=== PATIENT | male | born 1970 | race Caucasian/White ===

== ENCOUNTER 2020-06-02 09:39 | Emergency (ER) | payer BC, OTHER ==
[2020-06-02 09:57] VITALS: BMI 38.0
[2020-06-02] MEDS ORDERED: morphine CARPU-JECT 4 MG/1 ML DISP.SYRIN IVPUSH ONE (10:09)
[2020-06-02] MEDS ORDERED: LACTATED RINGERS SOLUTION 1000 ML INFUS.BAG IV ONE ×2 (10:11→11:44)
[2020-06-02] MEDS ORDERED: morphine SULFATE 4 MG/ML VIAL ONE (10:18)
[2020-06-02 10:32] LABS: EPI CELLS 2 /uL (0-25.1); HYALINE CASTS 2 /uL (0-3.1); PH,URINE 5.5 (5.0-8.0); URINE APPEARANCE CLEAR; URINE BACTERIA 8 /uL (0-1359); URINE BILIRUBIN NEGATIVE (NEGATIVE); URINE COLOR YELLOW; URINE GLUCOSE (UA) NEGATIVE (NEGATIVE); URINE KETONE NEGATIVE (NEGATIVE); URINE LEUK ESTERASE NEGATIVE (NEGATIVE); URINE NITRITE NEGATIVE (NEGATIVE); URINE PROTEIN NEGATIVE (NEGATIVE); URINE RBC 11 /uL (0-23.9); URINE UROBILINOGEN 0.2 mg/dL (0.2-1.0); URINE WBC 4 /uL (0-25.8)
[2020-06-02 10:54] LABS: BASO % 0.3 % (0-2.0); EOS % 0.3 % (0-4.5); HEMATOCRIT 46.2 % (35.4-49); HEMOGLOBIN 15.8 GM/dL (11.7-16.9); LYMPH % 17.8 % (8-40); MCH 30.9 pg (25.7-33.7); MCHC 34.2 g/dl (32.0-35.9); MEAN CELL VOLUME 90.3 fl (80-96); MEAN PLT VOLUME 11.1 fl (7.5-11.1); MONO % 5.8 % (3.8-10.2); NEUT % 75.8 % (42.8-82.8); PLATELET COUNT 187 K/MM3 (134-434); RBC 5.12 M/mm3 (4.00-5.60); RDW 13.5 % (11.9-15.9)
[2020-06-02 11:24] LABS: ALBUMIN 3.7 g/dl (3.4-5.0); BILIRUBIN,TOTAL 0.4 mg/dL (0.2-1); BLOOD UREA NITROGEN 12.4 mg/dL (7-18); CREATININE 1.2 mg/dL (0.55-1.3); POTASSIUM 3.8 mmol/L (3.5-5.1); TOT PROT 7.3 g/dl (6.4-8.2)
--- NOTE | 2020-06-02 11:25 | PDOC ---
History of Present Illness - General Chief Complaint: Urinary Problem Stated Complaint: URINARY RETENTION Time Seen by Provider: 06/02/20 10:02 - History of Present Illness Initial Comments: 06/02/20 11:54 49 yo male with pmh of hernia presents to ED for left testicular pain radiation up the left flank that started this AM. Pt explains he was lying down and started having left testicular pain radiating up his groin to his left back. Pt denies ever having pain before. Pt explains it is 10/10 sharp pain. PT denies anything make it better or worse. Pt denies fevers, chills, dysuria, urinary frequency, erythema or swelling of testicle, nausea, or emesis. PMH: denies Meds: denies PSH: right hernia repair Allergy: denies Social: denies smoking drugs or alcohol PCP: Dr. Trveiño Past History - Medical History Allergies/Adverse Reactions: Allergies Allergy/AdvReac Type Severity Reaction Status Date / Time No Known Allergies Allergy Verified 06/02/20 09:47 Home Medications: Ambulatory Orders Oxycodone HCl 5 mg PO BID PRN #6 capsule MDD 2 tabs 06/02/20 COPD: No - Immunization History Immunization Up to Date: Yes - Psycho-Social/Smoking History Smoking History: Never smoked Have you smoked in the past 12 months: No Information on smoking cessation initiated: No - Substance Abuse Hx (Audit-C & DAST Scrn) How often the patient has a drink containing alcohol: Never Score: In Men: 4 or > Positive; In Women: 3 or > Positive: 0 Screen Result (Pos requires Nsg. Audit-10AR): Negative In the last yr the pt used illegal drug/Rx for NonMed reason: No Score: Yes response is considered Positive: 0 Screen Result (Positive result requires Nsg. DAST-10): Negative Review of Systems - Review of Systems Comments:: 06/02/20 13:58 GENERAL/CONSTITUTIONAL: No fever or chills. No weakness. HEAD, EYES, EARS, NOSE AND THROAT: No change in vision. No ear pain or discharge. No sore throat. CARDIOVASCULAR: No chest pain or shortness of breath RESPIRATORY: No cough, wheezing, or hemoptysis. GASTROINTESTINAL: No nausea, vomiting, diarrhea or constipation. GENITOURINARY: No dysuria, frequency, or change in urination. left flank pain MUSCULOSKELETAL: No joint or muscle swelling or pain. SKIN: No rash NEUROLOGIC: No headache, vertigo, loss of consciousness, or change in strength/sensation. ENDOCRINE: No increased thirst. No abnormal weight change ALLERGIC/IMMUNOLOGIC: No hives or skin allergy. *Physical Exam - Vital Signs Last Vital Signs Temp Pulse Resp BP Pulse Ox 97.7 F 59 L 16 141/49 L 97 06/02/20 09:49 06/02/20 09:49 06/02/20 09:49 06/02/20 09:49 06/02/20 09:49 - Physical Exam 06/02/20 13:59 GENERAL: Awake, alert, and fully oriented, in severe distress HEAD: No signs of trauma, normocephalic, atraumatic EYES: PERRLA, EOMI, sclera anicteric, conjunctiva clear ENT: Auricles normal inspection, hearing grossly normal, nares patent, oropharynx clear without exudates. Moist mucosa NECK: Normal ROM, supple, no lymphadenopathy, JVD, or masses LUNGS: No distress, speaks full sentences, clear to auscultation bilaterally HEART: Regular rate and rhythm, normal S1 and S2, no murmurs, rubs or gallops, peripheral pulses normal and equal bilaterally. ABDOMEN: Left upper and lower quadrant tenderness. Normal bowel sounds in all four quadrants. Neg cva tenderness bilaterally EXTREMITIES : Normal inspection, Normal range of motion, no edema. No clubbing or cyanosis. NEUROLOGICAL: Cranial nerves II through XII grossly intact. Normal speech, normal gait, no focal sensorimotor deficits SKIN: Warm, Dry, normal turgor, no rashes or lesions noted : chaperoned by dionte Herrera. Testicular exam is nontender to palpation. ED Treatment Course - LABORATORY CBC & Chemistry Diagram: 06/02/20 10:35 06/02/20 10:35 - ADDITIONAL ORDERS Additional order review: Laboratory Results 06/02/20 06/02/20 10:35 10:21 Sodium 141 Potassium 3.8 Chloride 107 Carbon Dioxide 24 Anion Gap 9 BUN 12.4 Creatinine 1.2 Est GFR (CKD-EPI)AfAm 81.80 Est GFR (CKD-EPI)NonAf 70.58 Random Glucose 113 H Calcium 9.0 Total Bilirubin 0.4 AST 20 ALT 38 Alkaline Phosphatase 135 H Total Protein 7.3 Albumin 3.7 Urine Color Yellow Urine Appearance Clear Urine pH 5.5 Ur Specific Daphne 1.020 Urine Protein Negative Urine Glucose (UA) Negative Urine Ketones Negative Urine Blood Trace Urine Nitrite Negative Urine Bilirubin Negative Urine Urobilinogen 0.2 Ur Leukocyte Esterase Negative Urine WBC (Auto) 4 Urine RBC (Auto) 11 Urine Casts (Auto) 2 U Epithel Cells (Auto) 2 Urine Bacteria (Auto) 8 06/02/20 10:35 RBC 5.12 MCV 90.3 MCHC 34.2 RDW 13.5 MPV 11.1 Neutrophils % 75.8 Lymphocytes % 17.8 Monocytes % 5.8 Eosinophils % 0.3 Basophils % 0.3 - Medications Given in the ED: ED Medications Discontinued Medications Generic Name Dose Route Start Last Admin Trade Name Freq PRN Reason Stop Dose Admin Lactated Ringer's 1,000 ml 06/02/20 10:11 06/02/20 10:49 Lactated Ringers Solution IV 06/02/20 10:12 1,000 ml ONCE ONE Administration Morphine Sulfate 4 mg 06/02/20 10:09 06/02/20 10:25 Morphine Injection - IVPUSH 06/02/20 10:10 4 mg ONCE ONE Administration Medical Decision Making - Medical Decision Making 06/02/20 14:00 49 yo male presenting with severe left flank pain. Will get UA, cbc, cmp, testicular us and ct scan. Ddx is hernia vs torsion, vs diverticulitis, vs kidney stone vs pyelo vs UTI. 06/02/20 14:11 CT scan showed 4mm stone in left ureter causing mild hydro. There is no pyelonephritis, so will dc home with return precautions of fever chills, and susan n radiating up back. Will also repeat lactate. 06/02/20 14:26 Lactate was normal so DC home Discharge - Discharge Information Problems reviewed: Yes Clinical Impression/Diagnosis: Kidney stone on left side, Scrotal pain, Flank pain Condition: Improved Disposition: HOME - Additional Discharge Information Prescriptions: Oxycodone HCl 5 mg PO BID PRN #6 capsule MDD 2 tabs PRN Reason: Pain - Follow up/Referral Referrals: Jair Treviño MD [Primary Care Provider] - Parminder Small MD [Staff Physician] - - Patient Discharge Instructions Patient Printed Discharge Instructions: Kidney Stones -- Adult Additional Instructions: You were seen in the ED for left sided pain. This is most likely due to kidney stone. At the ED we did labs and imaging. The imaging was concerning for 4mm stone. The labs showed elevated lactate which we we gave fluids and repeated Please follow up with urology within 7 days. We gave you a referral. IF you have any of the following please return to the ED: - fevers or chills - back pain going up back - unable to eat or drink For any emergencies please call for medical help right away. - Post Discharge Activity
--- NOTE | 2020-06-02 12:38 | PDOC ---
Documentation entered by Sharon Walton SCRIBE, acting as scribe for Jeffrey Mead MD. Jeffrey Mead MD: This documentation has been prepared by the melissaibAnton benson Lincy, SCRIBE, under my direction and personally reviewed by me in its entirety. I confirm that the documentation accurately reflects all work, treatment, procedures, and medical decision making performed by me. Attending Attestation - Resident Resident Name: MegPercy - ED Attending Attestation I have performed the following: I have examined & evaluated the patient, The case was reviewed & discussed with the resident, I agree w/resident's findings & plan, Exceptions are as noted - HPI HPI: 06/02/20 10:44 The patient is a 49-year-old male with no reported past medical history who was sent to the emergency department from [facility] for left testicular pain radiating up to the left flank region since 8:00 am today. The patient reports he was laying down when he had an acute onset of the pain. The patient describes the pain as sharp and constant in quality with 10/10 severity. Denies prior similar pain. Denies fever, chills, nausea, vomiting, diarrhea, constipation, dysuria, hematuria, urinary frequency, black or tarry stool. Denies the history of STD or STIs. The patient reports he is monogamous with his and denies using protection. - Physicial Exam PE: 06/02/20 12:39 See resident exam - Medical Decision Making 06/02/20 12:43 49 M with testicular/flank pain. - Labs, UA - CT, US 06/02/20 14:15 CT shows L ureteral stone UA with trace blood, no infection Mild lactic acidosis, will repeat Labs otherwise wnl 06/02/20 15:59 Repeat lactate normal Pt is well appearing, with normal vitals. Clinically stable for DC at this time. I discussed the physical exam findings, ancillary test results and final diagnoses with the patient. I answered all of the patient's questions. The patient was satisfied with the care received and felt comfortable with the discharge plan and treatment plan. The patient agrees to follow up with the primary care physician within 24-72 hours. Discharge - Discharge Information Problems reviewed: Yes - Discharge Information Clinical Impression/Diagnosis: Kidney stone on left side, Scrotal pain, Flank pain Condition: Improved Disposition: HOME - Additional Discharge Information Prescriptions: Oxycodone HCl 5 mg PO BID PRN #6 capsule MDD 2 tabs PRN Reason: Pain - Follow up/Referral Referrals: Parminder Small MD [Staff Physician] - Jair Treviño MD [Primary Care Provider] - - Patient Discharge Instructions Patient Printed Discharge Instructions: Kidney Stones -- Adult Additional Instructions: You were seen in the ED for left sided pain. This is most likely due to kidney stone. At the ED we did labs and imaging. The imaging was concerning for 4mm stone. The labs showed elevated lactate which we we gave fluids and repeated Please follow up with urology within 7 days. We gave you a referral. IF you have any of the following please return to the ED: - fevers or chills - back pain going up back - unable to eat or drink For any emergencies please call for medical help right away. - Post Discharge Activity
[2020-06-02] MEDS ORDERED: KETOROLAC TROMETHAMINE 30 MG/1 ML VIAL IVPUSH ONE (13:06)
[2020-06-02] MEDS ORDERED: ACETAMINOPHEN 1000 MG/100 ML VIAL (NON FORMULARY) IVPB ONE (13:06)
[2020-06-02] MEDS ORDERED: KETOROLAC TROMETHAMINE 30 MG/1 ML VIAL ONE (13:07)
[2020-06-02] MEDS ORDERED: ACETAMINOPHEN INJECTION 100 ML IVPB ONE (13:07)
[2020-06-02 16:19] VITALS: BP 136/78; PULSE 82; TEMP 98.6
== END 2020-06-02 16:19 | disposition home or self-care (01) ==
LOC: JER 09:39
PROC: 3E033NZ Introduction of Analgesics, Hypnotics, Sedatives into Peripheral Vein, Percutaneous Approach (ICD-10-PCS; principal; 2020-06-02)
PROC: 3E033GC Introduction of Other Therapeutic Substance into Peripheral Vein, Percutaneous Approach (ICD-10-PCS; 2020-06-02)
DX: N20.0 Calculus of kidney (principal); N50.82 Scrotal pain
CPT/HCPCS: 36415; 74177-TC; 76870-TC; 80053; 81003; 83605; 85025; 87086; 99285-25; J0131; Q9967

== ENCOUNTER 2020-10-24 10:15 | Emergency (ER) | payer BC, OTHER ==
[2020-10-24 10:24] VITALS: BP 131/81; PULSE 100; TEMP 97.9; BMI 38.0
== END 2020-10-24 11:50 | disposition home or self-care (01) ==
LOC: JER 10:15
DX: U07.1 COVID-19 (principal); R05 Cough
CPT/HCPCS: 71046-TC-FY; 87426; 99284-25

== ENCOUNTER 2020-10-29 17:48 | Inpatient (IN) | payer BC, OTHER ==
[2020-10-29 19:47] LABS: BASO % 0.3 % (0-2.0); HEMATOCRIT 45.1 % (35.4-49); HEMOGLOBIN 15.4 GM/dL (11.7-16.9); LYMPH % 18.7 % (8-40); MCH 30.8 pg (25.7-33.7); MCHC 34.1 g/dl (32.0-35.9); MEAN CELL VOLUME 90.4 fl (80-96); MEAN PLT VOLUME 10.7 fl (7.5-11.1); MONO % 10.5 % (3.8-10.2); NEUT % 70.5 % (42.8-82.8); PLATELET COUNT 156 K/MM3 (134-434); RBC 4.99 M/mm3 (4.00-5.60); RDW 13.6 % (11.9-15.9); WHITE BLOOD COUNT 7.1 K/mm3 (4.0-10.0)
[2020-10-29 19:52] LABS: INR 1.11 (0.83-1.09); PROTHROMBIN TIME (PATIENT) 13.6 SEC (9.7-13.0)
[2020-10-29 20:03] LABS: CHLORIDE 102 mmol/L (98-107); POTASSIUM 4.1 mmol/L (3.5-5.1); SODIUM 136 mmol/L (136-145)
[2020-10-29 20:06] LABS: ALBUMIN 3.4 g/dl (3.4-5.0); ANION GAP 6 MMOL/L (8-16); BLOOD UREA NITROGEN 18.5 mg/dL (7-18); CALCIUM 8.7 mg/dL (8.5-10.1); CO2 29 mmol/L (21-32); GLUCOSE,RANDOM 87 mg/dL (74-106)
[2020-10-29 20:09] LABS: SGOT/AST 22 U/L (15-37); SGPT/ALT 38 U/L (13-61)
[2020-10-29 20:10] LABS: BILIRUBIN,TOTAL 0.4 mg/dL (0.2-1)
[2020-10-29 20:11] LABS: TOT PROT 7.3 g/dl (6.4-8.2)
[2020-10-29 20:12] LABS: ALK PHOS 89 U/L (45-117)
[2020-10-29 20:35] LABS: LDH 236 U/L (87-246)
[2020-10-29] MEDS ORDERED: DEXAMETHASONE SOD PHOSPHATE 4 MG/1 ML VIAL IVPUSH ONE (20:38)
[2020-10-29] MEDS ORDERED: DEXAMETHASONE SOD PHOSPHATE 10 MG/1 ML VIAL ONE (20:46)
[2020-10-29] MEDS ORDERED: ACETAMINOPHEN 325 MG TABLET (FP) PO PRN (21:17)
[2020-10-30] MEDS ORDERED: ACETAMINOPHEN 325 MG TABLET (FP) ONE (01:47)
[2020-10-30] MEDS ORDERED: CEFTRIAXONE 1 GM in DEXTROSE 5%-WATER - 50 ML IVPB ONE (06:06)
[2020-10-30] MEDS ORDERED: AZITHROMYCIN IVPB 500 MG/250 ML BAG IVPB ONE (06:07)
[2020-10-30] MEDS ORDERED: DEXTROSE 5%-WATER - 50 ML IVPB ONE (06:28)
[2020-10-30] MEDS ORDERED: cefTRIAXone SODIUM 1 GM VIAL ONE (06:28)
[2020-10-30] MEDS: guaiFENesin 200 MG/10 ML 10 ML UNIT-DOSE CUPS PO PRN (06:35)
[2020-10-30 10:13] LABS: BASO % 0.1 % (0-2.0); HEMATOCRIT 43.4 % (35.4-49); HEMOGLOBIN 14.9 GM/dL (11.7-16.9); LYMPH % 21.2 % (8-40); MCH 31.1 pg (25.7-33.7); MCHC 34.4 g/dl (32.0-35.9); MEAN CELL VOLUME 90.3 fl (80-96); MEAN PLT VOLUME 10.7 fl (7.5-11.1); MONO % 7.7 % (3.8-10.2); PLATELET COUNT 168 K/MM3 (134-434); RBC 4.81 M/mm3 (4.00-5.60); RDW 13.6 % (11.9-15.9); WHITE BLOOD COUNT 4.4 K/mm3 (4.0-10.0)
[2020-10-30 10:22] LABS: POTASSIUM 4.2 mmol/L (3.5-5.1)
[2020-10-30 10:24] LABS: ALBUMIN 3.1 g/dl (3.4-5.0); BLOOD UREA NITROGEN 19.2 mg/dL (7-18); CALCIUM 8.3 mg/dL (8.5-10.1)
[2020-10-30 10:27] LABS: CREATININE 0.9 mg/dL (0.55-1.3)
[2020-10-30 10:29] LABS: BILIRUBIN,TOTAL 0.4 mg/dL (0.2-1)
[2020-10-30] MEDS ORDERED: REMDESIVIR 200 MG in SODIUM CHLORIDE 210 ML IVPB ONE (12:00)
[2020-10-30] MEDS: ZINC SULFATE 220 MG CAPSULE (FP) PO SCH (12:15)
[2020-10-30] MEDS: DEXAMETHASONE 4 MG TABLET (FP) PO SCH (12:16)
[2020-10-30] MEDS: CHOLECALCIFEROL (VIT D3) 1,000 UNIT (25 MCG) TABLET PO SCH (12:16)
[2020-10-30] MEDS: ASCORBIC ACID 500 MG TABLET (FP) PO SCH ×2 (12:16→21:57)
[2020-10-31] MEDS ORDERED: DEXTROSE 5%-WATER - 50 ML IVPB ONE (10:25)
[2020-10-31] MEDS ORDERED: cefTRIAXone SODIUM 1 GM VIAL ONE (10:25)
[2020-10-31] MEDS: CEFTRIAXONE 1 GM in DEXTROSE 5%-WATER - 50 ML IVPB SCH (10:28)
[2020-10-31] MEDS: ZINC SULFATE 220 MG CAPSULE (FP) PO SCH (10:28)
[2020-10-31] MEDS: DEXAMETHASONE 4 MG TABLET (FP) PO SCH (10:28)
[2020-10-31] MEDS: CHOLECALCIFEROL (VIT D3) 1,000 UNIT (25 MCG) TABLET PO SCH (10:28)
[2020-10-31] MEDS: ASCORBIC ACID 500 MG TABLET (FP) PO SCH ×2 (10:28→21:51)
[2020-10-31] MEDS: AZITHROMYCIN IVPB 500 MG/250 ML BAG IVPB SCH (12:07)
[2020-10-31] MEDS: ENOXAPARIN NA (PORCINE) 40 MG/0.4 ML DISP.SYRIN SQ SCH (12:45)
[2020-10-31] MEDS: PANTOPRAZOLE 40 MG TABLET PO SCH (13:54)
[2020-10-31] MEDS: REMDESIVIR 100 MG in SODIUM CHLORIDE 230 ML IVPB SCH (13:55)
[2020-11-01 09:39] LABS: BASO % 0.1 % (0-2.0); HEMATOCRIT 41.8 % (35.4-49); HEMOGLOBIN 14.1 GM/dL (11.7-16.9); MCH 30.7 pg (25.7-33.7); MCHC 33.8 g/dl (32.0-35.9); MEAN CELL VOLUME 90.9 fl (80-96); MEAN PLT VOLUME 10.9 fl (7.5-11.1); MONO % 10.1 % (3.8-10.2); NEUT % 70.8 % (42.8-82.8); PLATELET COUNT 200 K/MM3 (134-434); RDW 13.4 % (11.9-15.9); WHITE BLOOD COUNT 10.5 K/mm3 (4.0-10.0)
[2020-11-01] MEDS ORDERED: cefTRIAXone SODIUM 1 GM VIAL ONE (09:59)
[2020-11-01] MEDS ORDERED: DEXTROSE 5%-WATER - 50 ML IVPB ONE (09:59)
[2020-11-01] MEDS: CEFTRIAXONE 1 GM in DEXTROSE 5%-WATER - 50 ML IVPB SCH (10:08)
[2020-11-01] MEDS: ZINC SULFATE 220 MG CAPSULE (FP) PO SCH (10:09)
[2020-11-01] MEDS: AZITHROMYCIN IVPB 500 MG/250 ML BAG IVPB SCH (10:09)
[2020-11-01] MEDS: PANTOPRAZOLE 40 MG TABLET PO SCH (10:09)
[2020-11-01] MEDS: ENOXAPARIN NA (PORCINE) 40 MG/0.4 ML DISP.SYRIN SQ SCH (10:09)
[2020-11-01] MEDS: ASCORBIC ACID 500 MG TABLET (FP) PO SCH ×2 (10:10→21:29)
[2020-11-01] MEDS: CHOLECALCIFEROL (VIT D3) 1,000 UNIT (25 MCG) TABLET PO SCH (10:10)
[2020-11-01] MEDS: DEXAMETHASONE 4 MG TABLET (FP) PO SCH (10:10)
[2020-11-01 10:42] LABS: POTASSIUM 4.2 mmol/L (3.5-5.1)
[2020-11-01 10:44] LABS: ALBUMIN 2.8 g/dl (3.4-5.0); CALCIUM 8.4 mg/dL (8.5-10.1)
[2020-11-01 10:45] LABS: BLOOD UREA NITROGEN 20.6 mg/dL (7-18)
[2020-11-01 10:48] LABS: BILIRUBIN,TOTAL 0.5 mg/dL (0.2-1); CREATININE 0.9 mg/dL (0.55-1.3)
[2020-11-01 10:49] LABS: TOT PROT 6.3 g/dl (6.4-8.2)
[2020-11-01] MEDS: REMDESIVIR 100 MG in SODIUM CHLORIDE 230 ML IVPB SCH (12:38)
[2020-11-02] MEDS ORDERED: DEXTROSE 5%-WATER - 50 ML IVPB ONE (09:37)
[2020-11-02] MEDS ORDERED: cefTRIAXone SODIUM 1 GM VIAL ONE (09:37)
[2020-11-02] MEDS: ENOXAPARIN NA (PORCINE) 40 MG/0.4 ML DISP.SYRIN SQ SCH (09:40)
[2020-11-02] MEDS: DEXAMETHASONE 4 MG TABLET (FP) PO SCH (09:40)
[2020-11-02] MEDS: ZINC SULFATE 220 MG CAPSULE (FP) PO SCH (09:40)
[2020-11-02] MEDS: CHOLECALCIFEROL (VIT D3) 1,000 UNIT (25 MCG) TABLET PO SCH (09:41)
[2020-11-02] MEDS: PANTOPRAZOLE 40 MG TABLET PO SCH (09:41)
[2020-11-02] MEDS: ASCORBIC ACID 500 MG TABLET (FP) PO SCH ×2 (09:41→21:52)
[2020-11-02] MEDS: CEFTRIAXONE 1 GM in DEXTROSE 5%-WATER - 50 ML IVPB SCH (09:41)
[2020-11-02] MEDS: AZITHROMYCIN IVPB 500 MG/250 ML BAG IVPB SCH (10:46)
[2020-11-02] MEDS: REMDESIVIR 100 MG in SODIUM CHLORIDE 230 ML IVPB SCH (12:50)
[2020-11-02] MEDS: FAMOTIDINE 20 MG TABLET PO SCH (21:52)
[2020-11-03] MEDS ORDERED: PT OWN MED DRAWER 7, Y5N ONE (10:21)
[2020-11-03] MEDS ORDERED: DEXTROSE 5%-WATER - 50 ML IVPB ONE (10:22)
[2020-11-03] MEDS ORDERED: cefTRIAXone SODIUM 1 GM VIAL ONE (10:22)
[2020-11-03] MEDS: CEFTRIAXONE 1 GM in DEXTROSE 5%-WATER - 50 ML IVPB SCH (10:25)
[2020-11-03] MEDS: CHOLECALCIFEROL (VIT D3) 1,000 UNIT (25 MCG) TABLET PO SCH (10:25)
[2020-11-03] MEDS: ENOXAPARIN NA (PORCINE) 40 MG/0.4 ML DISP.SYRIN SQ SCH (10:25)
[2020-11-03] MEDS: ZINC SULFATE 220 MG CAPSULE (FP) PO SCH (10:25)
[2020-11-03] MEDS: ASCORBIC ACID 500 MG TABLET (FP) PO SCH ×2 (10:25→21:37)
[2020-11-03] MEDS: FAMOTIDINE 20 MG TABLET PO SCH ×2 (10:26→21:37)
[2020-11-03] MEDS: DEXAMETHASONE 4 MG TABLET (FP) PO SCH (10:26)
[2020-11-03 10:45] LABS: BASO % 0.2 % (0-2.0); EOS % 0.1 % (0-4.5); HEMATOCRIT 45.6 % (35.4-49); HEMOGLOBIN 15.3 GM/dL (11.7-16.9); LYMPH % 17.5 % (8-40); MCH 30.6 pg (25.7-33.7); MCHC 33.6 g/dl (32.0-35.9); MEAN PLT VOLUME 10.3 fl (7.5-11.1); MONO % 6.1 % (3.8-10.2); NEUT % 76.1 % (42.8-82.8); PLATELET COUNT 255 K/MM3 (134-434); RBC 5.01 M/mm3 (4.00-5.60); RDW 13.4 % (11.9-15.9); WHITE BLOOD COUNT 9.3 K/mm3 (4.0-10.0)
[2020-11-03 10:58] LABS: POTASSIUM 4.7 mmol/L (3.5-5.1)
[2020-11-03 11:03] LABS: CALCIUM 8.6 mg/dL (8.5-10.1)
[2020-11-03 11:04] LABS: BLOOD UREA NITROGEN 21.3 mg/dL (7-18)
[2020-11-03 11:07] LABS: BILIRUBIN,TOTAL 0.6 mg/dL (0.2-1); CREATININE 0.9 mg/dL (0.55-1.3); TOT PROT 6.6 g/dl (6.4-8.2)
[2020-11-03] MEDS: AZITHROMYCIN IVPB 500 MG/250 ML BAG IVPB SCH (11:12)
[2020-11-03] MEDS: REMDESIVIR 100 MG in SODIUM CHLORIDE 230 ML IVPB SCH (12:56)
[2020-11-04] MEDS ORDERED: DEXTROSE 5%-WATER - 50 ML IVPB ONE (10:24)
[2020-11-04] MEDS ORDERED: cefTRIAXone SODIUM 1 GM VIAL ONE (10:24)
[2020-11-04] MEDS: AZITHROMYCIN IVPB 500 MG/250 ML BAG IVPB SCH (10:30)
[2020-11-04] MEDS: CHOLECALCIFEROL (VIT D3) 1,000 UNIT (25 MCG) TABLET PO SCH (10:31)
[2020-11-04] MEDS: FAMOTIDINE 20 MG TABLET PO SCH ×2 (10:31→22:12)
[2020-11-04] MEDS: ASCORBIC ACID 500 MG TABLET (FP) PO SCH ×2 (10:31→22:12)
[2020-11-04] MEDS: ENOXAPARIN NA (PORCINE) 40 MG/0.4 ML DISP.SYRIN SQ SCH (10:31)
[2020-11-04] MEDS: ZINC SULFATE 220 MG CAPSULE (FP) PO SCH (10:31)
[2020-11-04] MEDS: DEXAMETHASONE 4 MG TABLET (FP) PO SCH (10:32)
[2020-11-04] MEDS: CEFTRIAXONE 1 GM in DEXTROSE 5%-WATER - 50 ML IVPB SCH (10:33)
[2020-11-04] MEDS: guaiFENesin 200 MG/10 ML 10 ML UNIT-DOSE CUPS PO PRN (13:33)
[2020-11-05] MEDS ORDERED: cefTRIAXone SODIUM 1 GM VIAL ONE (11:28)
[2020-11-05] MEDS ORDERED: DEXTROSE 5%-WATER - 50 ML IVPB ONE (11:28)
[2020-11-05] MEDS: CEFTRIAXONE 1 GM in DEXTROSE 5%-WATER - 50 ML IVPB SCH (11:32)
[2020-11-05] MEDS: ENOXAPARIN NA (PORCINE) 40 MG/0.4 ML DISP.SYRIN SQ SCH (11:33)
[2020-11-05] MEDS: guaiFENesin 200 MG/10 ML 10 ML UNIT-DOSE CUPS PO PRN (11:33)
[2020-11-05] MEDS: FAMOTIDINE 20 MG TABLET PO SCH ×2 (11:34→21:35)
[2020-11-05] MEDS: ZINC SULFATE 220 MG CAPSULE (FP) PO SCH (11:34)
[2020-11-05] MEDS: CHOLECALCIFEROL (VIT D3) 1,000 UNIT (25 MCG) TABLET PO SCH (11:34)
[2020-11-05] MEDS: DEXAMETHASONE 4 MG TABLET (FP) PO SCH (11:34)
[2020-11-05] MEDS: AZITHROMYCIN IVPB 500 MG/250 ML BAG IVPB SCH (11:35)
[2020-11-05] MEDS: ASCORBIC ACID 500 MG TABLET (FP) PO SCH ×2 (11:36→21:35)
[2020-11-05 17:35] VITALS: BMI 36.2
[2020-11-06] MEDS ORDERED: cefTRIAXone SODIUM 1 GM VIAL ONE (09:13)
[2020-11-06] MEDS ORDERED: DEXTROSE 5%-WATER - 50 ML IVPB ONE (09:14)
[2020-11-06] MEDS: ZINC SULFATE 220 MG CAPSULE (FP) PO SCH (09:29)
[2020-11-06] MEDS: ASCORBIC ACID 500 MG TABLET (FP) PO SCH ×2 (09:29→21:01)
[2020-11-06] MEDS: ENOXAPARIN NA (PORCINE) 40 MG/0.4 ML DISP.SYRIN SQ SCH (09:29)
[2020-11-06] MEDS: DEXAMETHASONE 4 MG TABLET (FP) PO SCH (09:30)
[2020-11-06] MEDS: CHOLECALCIFEROL (VIT D3) 1,000 UNIT (25 MCG) TABLET PO SCH (09:32)
[2020-11-06] MEDS: FAMOTIDINE 20 MG TABLET PO SCH ×2 (09:32→21:01)
[2020-11-06] MEDS: CEFTRIAXONE 1 GM in DEXTROSE 5%-WATER - 50 ML IVPB SCH (09:32)
[2020-11-06] MEDS: AZITHROMYCIN IVPB 500 MG/250 ML BAG IVPB SCH (10:09)
[2020-11-07] MEDS ORDERED: PT OWN MED DRAWER 7, Y5N ONE (11:00)
[2020-11-07] MEDS: guaiFENesin 200 MG/10 ML 10 ML UNIT-DOSE CUPS PO PRN (11:04)
[2020-11-07] MEDS: ZINC SULFATE 220 MG CAPSULE (FP) PO SCH (11:04)
[2020-11-07] MEDS: DEXAMETHASONE 4 MG TABLET (FP) PO SCH (11:04)
[2020-11-07] MEDS: CHOLECALCIFEROL (VIT D3) 1,000 UNIT (25 MCG) TABLET PO SCH (11:04)
[2020-11-07] MEDS: ASCORBIC ACID 500 MG TABLET (FP) PO SCH ×2 (11:04→21:14)
[2020-11-07] MEDS: FAMOTIDINE 20 MG TABLET PO SCH ×2 (11:04→21:14)
[2020-11-08] MEDS: CHOLECALCIFEROL (VIT D3) 1,000 UNIT (25 MCG) TABLET PO SCH (09:39)
[2020-11-08] MEDS: ASCORBIC ACID 500 MG TABLET (FP) PO SCH ×2 (09:39→23:26)
[2020-11-08] MEDS: ZINC SULFATE 220 MG CAPSULE (FP) PO SCH (09:39)
[2020-11-08] MEDS: DEXAMETHASONE 4 MG TABLET (FP) PO SCH (09:39)
[2020-11-08] MEDS: FAMOTIDINE 20 MG TABLET PO SCH ×2 (09:40→23:26)
[2020-11-09] MEDS: CHOLECALCIFEROL (VIT D3) 1,000 UNIT (25 MCG) TABLET PO SCH (10:33)
[2020-11-09] MEDS: FAMOTIDINE 20 MG TABLET PO SCH (10:33)
[2020-11-09] MEDS: ASCORBIC ACID 500 MG TABLET (FP) PO SCH (10:33)
[2020-11-09] MEDS: ZINC SULFATE 220 MG CAPSULE (FP) PO SCH (10:33)
[2020-11-09] MEDS: DEXAMETHASONE 4 MG TABLET (FP) PO SCH (10:33)
[2020-11-09 14:21] VITALS: PULSE 74
[2020-11-09 15:21] VITALS: BP 117/69; TEMP 97.9
== END 2020-11-09 16:58 | disposition home or self-care (01) | DRG 177 ==
LOC: JER 17:48 → JERBED 21:07 → J5S 10-30 03:50
PROVIDERS: ADMIT Internal Medicine; ATTEND Internal Medicine
PROC: XW033E5 Introduction of Remdesivir Anti-infective into Peripheral Vein, Percutaneous Approach, New Technology Group 5 (ICD-10-PCS; principal; 2020-10-31)
PROC: XW13325 Transfusion of Convalescent Plasma (Nonautologous) into Peripheral Vein, Percutaneous Approach, New Technology Group 5 (ICD-10-PCS; 2020-10-31)
DX: U07.1 COVID-19 (principal); J12.82 Pneumonia due to coronavirus disease 2019; J96.01 Acute respiratory failure with hypoxia; R19.7 Diarrhea, unspecified; B34.9 Viral infection, unspecified; G47.33 Obstructive sleep apnea (adult) (pediatric); E66.9 Obesity, unspecified; Z68.36 Body mass index [BMI] 36.0-36.9, adult
CPT/HCPCS: 36415; 36430; 71045-TC-FY; 80053; 82550; 82728; 83615; 84484; 85025; 85379; 85610; 85730; 86140; 86850; 86900; 86901; 87040; 87045; 87046; 87177; 87209; 87324; 87449; 93005; 93010; 94010; 94761; 99285-25; C9399; P9017

== ENCOUNTER 2021-08-13 20:34 | Inpatient (IN) | payer BC ==
[2021-08-13] MEDS ORDERED: morphine SULFATE 4 MG/ML VIAL ONE ×2 (21:26→23:03)
[2021-08-13] MEDS ORDERED: morphine CARPU-JECT 4 MG/1 ML DISP.SYRIN IVPUSH ONE ×2 (21:30→22:58)
[2021-08-13 22:09] LABS: BASO % 1.1 % (0-2.0); EOS % 0.1 % (0-4.5); HEMATOCRIT 44.4 % (35.4-49); HEMOGLOBIN 15.3 GM/dL (11.7-16.9); LYMPH % 14.4 % (8-40); MCH 30.9 pg (25.7-33.7); MCHC 34.4 g/dl (32.0-35.9); MEAN CELL VOLUME 89.9 fl (80-96); MEAN PLT VOLUME 10.7 fl (7.5-11.1); MONO % 6.8 % (3.8-10.2); NEUT % 77.6 % (42.8-82.8); PLATELET COUNT 212 10^3/uL (134-434); RBC 4.94 M/mm3 (4.00-5.60)
[2021-08-13 22:31] LABS: ALBUMIN 3.9 g/dl (3.4-5.0); CALCIUM 9.2 mg/dL (8.5-10.1)
[2021-08-13 22:34] LABS: CREATININE 1.5 mg/dL (0.55-1.3)
[2021-08-13 22:36] LABS: BILIRUBIN,TOTAL 0.4 mg/dL (0.2-1); TOT PROT 7.6 g/dl (6.4-8.2)
[2021-08-13 23:24] LABS: EPI CELLS 10 /uL (0-25.1); HYALINE CASTS 0 /uL (0-3.1); URINE APPEARANCE CLEAR; URINE BACTERIA 8 /uL (0-1359); URINE BILIRUBIN NEGATIVE (NEGATIVE); URINE COLOR YELLOW; URINE GLUCOSE (UA) NEGATIVE (NEGATIVE); URINE KETONE NEGATIVE (NEGATIVE); URINE LEUK ESTERASE NEGATIVE (NEGATIVE); URINE NITRITE NEGATIVE (NEGATIVE); URINE PROTEIN NEGATIVE (NEGATIVE); URINE RBC 45 /uL (0-23.9); URINE UROBILINOGEN 0.2 mg/dL (0.2-1.0); URINE WBC 5 /uL (0-25.8)
[2021-08-13] MEDS ORDERED: ACETAMINOPHEN INJECTION 100 ML IVPB ONE (23:32)
[2021-08-13] MEDS ORDERED: ACETAMINOPHEN 1000 MG/100 ML VIAL IVPB ONE (23:32)
[2021-08-14] MEDS ORDERED: SODIUM CHLORIDE 0.9% 500 ML INFUS.BAG IV ONE (02:21)
[2021-08-14] MEDS ORDERED: HYDROmorphone HCL CARPU-JECT 2 MG/1 ML DISP.SYRIN IVPUSH ONE ×2 (02:39→05:13)
[2021-08-14] MEDS ORDERED: DOCUSATE SODIUM 100 MG CAPSULE (FP) PO ONE ×2 (02:40→03:03)
[2021-08-14] MEDS ORDERED: HYDROmorphone HCl 2 MG/ML VIAL ONE ×3 (03:03→09:03)
[2021-08-14] MEDS ORDERED: TAMSULOSIN HCL 0.4 MG CAP PO ONE (04:29)
[2021-08-14] MEDS ORDERED: KETOROLAC TROMETHAMINE 15 MG/ML VIAL IVPUSH PRN ×2 (04:30→04:34)
[2021-08-14] MEDS ORDERED: ACETAMINOPHEN 1000 MG/100 ML VIAL IVPB ONE (05:13)
[2021-08-14] MEDS ORDERED: TAMSULOSIN HCL 0.4 MG CAP ONE (05:17)
[2021-08-14] MEDS ORDERED: ACETAMINOPHEN INJECTION 100 ML IVPB ONE (05:18)
[2021-08-14] MEDS: DEXTROSE 5%-NORMAL SALINE 1,000 ML IV SCH (08:20)
[2021-08-14] MEDS: HYDROmorphone HCl 2 MG/ML VIAL IVPB PRN (09:30)
[2021-08-14] MEDS: DOCUSATE SODIUM 100 MG CAPSULE (FP) PO SCH ×2 (10:25→22:43)
[2021-08-14] MEDS: ACETAMINOPHEN 1000 MG/100 ML VIAL IVPB PRN (11:51)
[2021-08-14 14:19] VITALS: BMI 39.0
[2021-08-15] MEDS: DEXTROSE 5%-NORMAL SALINE 1,000 ML IV SCH (01:35)
[2021-08-15] MEDS: ACETAMINOPHEN 1000 MG/100 ML VIAL IVPB PRN (02:22)
[2021-08-15 07:32] LABS: BASO % 0.3 % (0-2.0); EOS % 0.8 % (0-4.5); HEMATOCRIT 40.9 % (35.4-49); HEMOGLOBIN 14.5 GM/dL (11.7-16.9); LYMPH % 15.2 % (8-40); MCH 31.3 pg (25.7-33.7); MCHC 35.4 g/dl (32.0-35.9); MEAN CELL VOLUME 88.4 fl (80-96); MONO % 8.9 % (3.8-10.2); NEUT % 74.8 % (42.8-82.8); PLATELET COUNT 176 10^3/uL (134-434); RBC 4.63 M/mm3 (4.00-5.60); RDW 13.1 % (11.9-15.9); WHITE BLOOD COUNT 13.8 K/mm3 (4.0-10.0)
[2021-08-15 07:42] LABS: INR 1.03 (0.83-1.09)
[2021-08-15 07:44] LABS: ACTIVATED PTT 36.7 SECONDS (25.2-36.5)
[2021-08-15 07:58] LABS: CALCIUM 8.2 mg/dL (8.5-10.1)
[2021-08-15 07:59] LABS: BLOOD UREA NITROGEN 18.7 mg/dL (7-18)
[2021-08-15 08:02] LABS: CREATININE 1.6 mg/dL (0.55-1.3)
[2021-08-15] MEDS: HYDROmorphone HCl 2 MG/ML VIAL IVPB PRN ×2 (08:55→16:47)
[2021-08-15] MEDS: DOCUSATE SODIUM 100 MG CAPSULE (FP) PO SCH ×2 (09:21→21:33)
[2021-08-15] MEDS ORDERED: ENOXAPARIN NA (PORCINE) 40 MG/0.4 ML DISP.SYRIN SQ SCH (10:00)
[2021-08-15] MEDS ORDERED: ONDANSETRON 4 MG/2 ML VIAL IVPUSH PRN ×2 (15:58→19:07)
[2021-08-15] MEDS ORDERED: LACTATED RINGERS SOLUTION 1,000 ML IV SCH ×2 (16:00→19:07)
[2021-08-15] MEDS ORDERED: PROPOFOL 20 ML ONE (17:40)
[2021-08-15] MEDS ORDERED: ceFAZolin SODIUM 1 GM VIAL ONE (18:10)
[2021-08-15] MEDS ORDERED: GENTAMICIN SO4 80 MG/2 ML VIAL ONE (18:10)
[2021-08-15] MEDS ORDERED: GENTAMICIN SO4 80 MG/2 ML VIAL IVPB ONE (18:13)
[2021-08-15] MEDS ORDERED: ceFAZolin SODIUM 1 GM VIAL IVPB ONE (18:13)
[2021-08-15] MEDS ORDERED: DEXAMETHASONE SOD PHOSPHATE 4 MG/1 ML VIAL ONE (18:15)
[2021-08-15] MEDS ORDERED: SODIUM CHLORIDE 0.9% P/F 10 ML VIAL IJ ONE (18:38)
[2021-08-15] MEDS ORDERED: DEXTROSE 5%-NORMAL SALINE 1,000 ML IV SCH (19:07)
[2021-08-15] MEDS ORDERED: HYDROmorphone HCl 2 MG/ML VIAL IVPB PRN (19:07)
[2021-08-15] MEDS ORDERED: KETOROLAC TROMETHAMINE 15 MG/ML VIAL IVPUSH PRN (19:07)
[2021-08-15] MEDS: POLYETHYLENE GLYCOL (HEALTHYLAX) 3350 17 GM PACKET PO PRN (21:33)
[2021-08-16] MEDS: DOCUSATE SODIUM 100 MG CAPSULE (FP) PO SCH (09:26)
[2021-08-16] MEDS: POLYETHYLENE GLYCOL (HEALTHYLAX) 3350 17 GM PACKET PO PRN (09:26)
[2021-08-16] MEDS ORDERED: ENOXAPARIN NA (PORCINE) 40 MG/0.4 ML DISP.SYRIN SQ SCH (10:00)
[2021-08-16] MEDS ORDERED: SODIUM PHOSPHATE/NA BIPHOS 133 ML ENEMA RC ONE (11:45)
[2021-08-16 15:03] VITALS: BP 137/73; PULSE 88; TEMP 98.1
[2021-08-21 13:38] LABS: CA OXALATE MONOHYDR. 100%; SIZE 2X2; WEIGHT 10 MG
== END 2021-08-16 15:48 | disposition home or self-care (01) | DRG 661 ==
LOC: JER 20:34 → JERBED 08-14 01:21 → J7W 08-14 11:32
PROVIDERS: ATTEND Internal Medicine
PROC: 0T768DZ Dilation of Right Ureter with Intraluminal Device, Via Natural or Artificial Opening Endoscopic (ICD-10-PCS; 2021-08-15)
PROC: 0TC68ZZ Extirpation of Matter from Right Ureter, Via Natural or Artificial Opening Endoscopic (ICD-10-PCS; 2021-08-15)
PROC: BT1DZZZ Fluoroscopy of Right Kidney, Ureter and Bladder (ICD-10-PCS; principal; 2021-08-15 17:30)
DX: N13.2 Hydronephrosis with renal and ureteral calculous obstruction (principal); N50.3 Cyst of epididymis; N17.9 Acute kidney failure, unspecified; N43.3 Hydrocele, unspecified; R10.9 Unspecified abdominal pain; D72.829 Elevated white blood cell count, unspecified
CPT/HCPCS: 36415; 74176-TC; 76000-TC-FY; 76870-TC; 80048; 80053; 81003; 82360; 83605; 85025; 85610; 85730; 87086; 88300-TC; 93005; 93010; 94760; 99285-25; C9803; J0131; U0003; U0005